=== PATIENT | female | born 1930 | race Caucasian/White ===

== ENCOUNTER → 2017-01-19 | Outpatient (CLI) | payer MEDICARE, OTHER ==
[2015-06-23 14:57] VITALS: BP 126/69
[~2017-01-19] MED LIST: ACET1TAB29 PO; ACET325T9 PO; ACET650T26 PO; AMLO5TAB2 PO; ASPI81TA2 PO; BIMA2.5D OP; CALC-98 PO; CALC200T3 PO; CALC300T5 PO; CARB15DR3 OP; CHOL100013 PO; CYCL1DRO EACHEYE; DARB40DI SQ; DIPH25CA58 PO; FAMO-63 PO; FAMO40OR3 PO; FLUT9.9S NS; GABA-586 PO; GLIP5TAB10 PO; GLUC1CAP48 PO; L. R1CAP PO; LATA2.5D3 OP; LEVO5DRO OP; LEVO75TA PO; LISI-334 PO; LOPE2TAB56 PO; LORA10CA PO; MAGN250T PO; MAGN400C PO; MENT5.8L4 MM; METH4TAB2 PO; PIOG15TA21 PO; PROP15DR OP; SIMV20TA PO; SODI30SP NS; TRAV5DRO EACHEYE; VITA1CAP PO
[2017-01-19 12:13] LABS: BASO % 1 % (0-3); EOS # 0.2 x10^3/uL (0.0-0.7); EOS % 4 % (0-3); HEMATOCRIT 38.3 % (36.0-47.0); HEMOGLOBIN 12.8 g/dL (12.0-15.5); LYMPH # 1.5 x10^3/uL (1.0-4.8); LYMPH % 30 % (24-48); MEAN CORPUSCULAR HEMOGLOBIN 37 pg (25-35); MEAN CORPUSCULAR HGB CONC 33 g/dL (31-37); MEAN CORPUSCULAR VOLUME 110 fL (79-100); MONO # 0.6 x10^3/uL (0.0-1.1); MONO % 13 % (0-9); NEUT # 2.6 x10^3uL (1.8-7.7); NEUT % 53 % (31-73); PLATELET COUNT 186 x10^3/uL (140-400); RED CELL DISTRIBUTION WIDTH 12.8 % (11.5-14.5); WHITE BLOOD COUNT 4.9 x10^3/uL (4.0-11.0)
== END | disposition home or self-care (01) ==
LOC: SPEC 11:16
PROVIDERS: ATTEND Family Medicine
DX: D64.9 Anemia, unspecified (principal)
CPT/HCPCS: 36415; 85027

== ENCOUNTER → 2017-02-07 | Outpatient (CLI) | payer MEDICARE, OTHER ==
[2015-06-23 14:57] VITALS: BP 126/69
[2017-02-07 11:11] LABS: ALBUMIN 3.9 g/dL (3.4-5.0); TOTAL BILIRUBIN 0.4 mg/dL (0.2-1.0); TOTAL PROTEIN 7.5 g/dL (6.4-8.2)
[2017-02-07 11:14] LABS: DIRECT BILIRUBIN 0.2 mg/dL (0.0-0.2)
== END | disposition home or self-care (01) ==
LOC: SPEC 09:22
PROVIDERS: ATTEND Internal Medicine Cardiovascular Disease
DX: E78.5 Hyperlipidemia, unspecified (principal)
CPT/HCPCS: 36415; 80076

== ENCOUNTER → 2017-02-08 | Outpatient (CLI) | payer MEDICARE, OTHER ==
[2015-06-23 14:57] VITALS: BP 126/69
[2017-02-08 15:50] LABS: C REACTIVE PROTEIN 1.3 mg/L (0-3.3)
[2017-02-08 18:14] LABS: BILIRUBIN,URINE NEG (NEG); CLARITY,URINE CLEAR; COLOR,URINE YELLOW; GLUCOSE,URINE 500 mg/dL (NEG); NITRITE,URINE NEG (NEG); UROBILINOGEN,URINE 0.2 mg/dL (0.2 mg/dL)
[2017-02-08 18:15] LABS: BACTERIA,URINE 0 /HPF (0-FEW); RBC,URINE RARE /HPF (0-2); SQUAMOUS EPITHELIAL CELL,UR FEW /LPF
== END | disposition home or self-care (01) ==
LOC: SPEC 15:12
PROVIDERS: ATTEND Specialist
DX: I10 Essential (primary) hypertension (principal); E11.9 Type 2 diabetes mellitus without complications; M25.511 Pain in right shoulder; M25.512 Pain in left shoulder; R07.89 Other chest pain
CPT/HCPCS: 36415; 81001; 82553; 84484; 85651; 86140; 87086

== ENCOUNTER → 2017-02-14 | Outpatient (CLI) | payer MEDICARE, OTHER ==
[2015-06-23 14:57] VITALS: BP 126/69
--- NOTE | 2017-02-14 13:43 | EKG ---
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
== END | disposition home or self-care (01) ==
LOC: EKG 13:14
PROVIDERS: ATTEND Specialist
DX: I10 Essential (primary) hypertension (principal); M25.511 Pain in right shoulder; E11.9 Type 2 diabetes mellitus without complications; M25.512 Pain in left shoulder; R07.89 Other chest pain
CPT/HCPCS: 93005

== ENCOUNTER → 2017-02-17 | Outpatient (CLI) | payer MEDICARE, OTHER ==
[2015-06-23 14:57] VITALS: BP 126/69
[2017-02-17 12:53] LABS: BASO % 1 % (0-3); EOS # 0.2 x10^3/uL (0.0-0.7); EOS % 4 % (0-3); HEMATOCRIT 37.7 % (36.0-47.0); HEMOGLOBIN 12.7 g/dL (12.0-15.5); LYMPH # 1.5 x10^3/uL (1.0-4.8); LYMPH % 33 % (24-48); MEAN CORPUSCULAR HEMOGLOBIN 37 pg (25-35); MEAN CORPUSCULAR HGB CONC 34 g/dL (31-37); MEAN CORPUSCULAR VOLUME 110 fL (79-100); MONO # 0.6 x10^3/uL (0.0-1.1); MONO % 13 % (0-9); NEUT # 2.3 x10^3uL (1.8-7.7); NEUT % 50 % (31-73); PLATELET COUNT 197 x10^3/uL (140-400); RED BLOOD COUNT 3.44 x10^6/uL (3.50-5.40); RED CELL DISTRIBUTION WIDTH 12.6 % (11.5-14.5); WHITE BLOOD COUNT 4.6 x10^3/uL (4.0-11.0)
== END | disposition home or self-care (01) ==
LOC: SPEC 12:39
PROVIDERS: ATTEND Family Medicine
DX: D64.9 Anemia, unspecified (principal)
CPT/HCPCS: 36415; 85027

== ENCOUNTER → 2017-03-21 | Outpatient (CLI) | payer MEDICARE, OTHER ==
[2015-06-23 14:57] VITALS: BP 126/69
[~2017-03-21] MED LIST changes: +ASPI-630 PO; -ASPI81TA2 PO; +CULTURELLE CAP1 EACH PO; -L. R1CAP PO; -PIOG15TA21 PO; +PIOG15TA42 PO; -PROP15DR OP; +PROP15DR40 OP
[2017-03-21 10:17] LABS: BASO % 0 % (0-3); EOS # 0.3 x10^3/uL (0.0-0.7); EOS % 4 % (0-3); HEMATOCRIT 37.2 % (36.0-47.0); HEMOGLOBIN 12.6 g/dL (12.0-15.5); LYMPH # 1.5 x10^3/uL (1.0-4.8); LYMPH % 18 % (24-48); MEAN CORPUSCULAR HEMOGLOBIN 36 pg (25-35); MEAN CORPUSCULAR HGB CONC 34 g/dL (31-37); MEAN CORPUSCULAR VOLUME 107 fL (79-100); MONO # 0.9 x10^3/uL (0.0-1.1); MONO % 10 % (0-9); NEUT % 69 % (31-73); PLATELET COUNT 170 x10^3/uL (140-400); RED BLOOD COUNT 3.47 x10^6/uL (3.50-5.40); RED CELL DISTRIBUTION WIDTH 12.7 % (11.5-14.5); WHITE BLOOD COUNT 8.8 x10^3/uL (4.0-11.0)
[2017-03-21 10:25] LABS: ALBUMIN 3.5 g/dL (3.4-5.0); ALBUMIN/GLOBULIN RATIO 0.9 (1.0-1.7); CALCIUM 8.6 mg/dL (8.5-10.1); CREATININE 2.3 mg/dL (0.6-1.0); TOTAL BILIRUBIN 0.7 mg/dL (0.2-1.0); TOTAL PROTEIN 7.2 g/dL (6.4-8.2)
[2017-03-21 15:32] LABS: THYROID STIM HORMONE (TSH) 1.824 uIU/mL (0.358-3.740)
[2017-03-22 03:10] LABS: HEMOGLOBIN A1C 7.7 % (4.8-5.6)
== END | disposition home or self-care (01) ==
LOC: SPEC 09:22
PROVIDERS: ATTEND Family Medicine
DX: I10 Essential (primary) hypertension (principal); E03.9 Hypothyroidism, unspecified; D64.9 Anemia, unspecified
CPT/HCPCS: 36415; 80053; 80061; 83036; 84443; 85027

== ENCOUNTER → 2017-04-20 | Outpatient (CLI) | payer MEDICARE, OTHER ==
[2015-06-23 14:57] VITALS: BP 126/69
[2017-04-20 09:38] LABS: BASO # 0.1 x10^3/uL (0.0-0.2); BASO % 1 % (0-3); EOS # 0.1 x10^3/uL (0.0-0.7); EOS % 3 % (0-3); HEMATOCRIT 35.7 % (36.0-47.0); HEMOGLOBIN 12.6 g/dL (12.0-15.5); LYMPH # 1.7 x10^3/uL (1.0-4.8); LYMPH % 31 % (24-48); MEAN CORPUSCULAR HEMOGLOBIN 38 pg (25-35); MEAN CORPUSCULAR HGB CONC 35 g/dL (31-37); MEAN CORPUSCULAR VOLUME 107 fL (79-100); MONO # 0.6 x10^3/uL (0.0-1.1); MONO % 11 % (0-9); NEUT % 55 % (31-73); PLATELET COUNT 198 x10^3/uL (140-400); RED BLOOD COUNT 3.33 x10^6/uL (3.50-5.40); RED CELL DISTRIBUTION WIDTH 12.9 % (11.5-14.5); WHITE BLOOD COUNT 5.4 x10^3/uL (4.0-11.0)
[2017-04-21 03:22] LABS: HEMOGLOBIN A1C 8.2 % (4.8-5.6)
== END | disposition home or self-care (01) ==
LOC: SPEC 09:15
PROVIDERS: ATTEND Family Medicine
DX: D64.9 Anemia, unspecified (principal); E03.9 Hypothyroidism, unspecified; N19 Unspecified kidney failure
CPT/HCPCS: 36415; 83036; 83735; 84443; 85027

== ENCOUNTER → 2017-04-21 | Outpatient (CLI) | payer MEDICARE, OTHER ==
[2015-06-23 14:57] VITALS: BP 126/69
[2017-04-21 12:36] LABS: BACTERIA,URINE FEW /HPF (0-FEW); BILIRUBIN,URINE NEG (NEG); CLARITY,URINE CLEAR; COLOR,URINE YELLOW; GLUCOSE,URINE NEG (NEG); NITRITE,URINE NEG (NEG); RBC,URINE 0 /HPF (0-2); SQUAMOUS EPITHELIAL CELL,UR FEW /LPF; UROBILINOGEN,URINE 0.2 mg/dL (0.2 mg/dL); WBC,URINE OCC /HPF (0-4)
== END | disposition home or self-care (01) ==
LOC: SPEC 11:40
PROVIDERS: ATTEND Family Medicine
DX: N39.0 Urinary tract infection, site not specified (principal)
CPT/HCPCS: 81001

== ENCOUNTER → 2017-05-22 | Outpatient (CLI) | payer MEDICARE, OTHER ==
[2015-06-23 14:57] VITALS: BP 126/69
[2017-05-22 08:25] LABS: BASO % 0 % (0-3); EOS # 0.2 x10^3/uL (0.0-0.7); EOS % 4 % (0-3); HEMOGLOBIN 11.8 g/dL (12.0-15.5); LYMPH # 1.8 x10^3/uL (1.0-4.8); LYMPH % 45 % (24-48); MEAN CORPUSCULAR HEMOGLOBIN 36 pg (25-35); MEAN CORPUSCULAR HGB CONC 34 g/dL (31-37); MEAN CORPUSCULAR VOLUME 106 fL (79-100); MONO # 0.5 x10^3/uL (0.0-1.1); MONO % 14 % (0-9); NEUT # 1.4 x10^3uL (1.8-7.7); NEUT % 37 % (31-73); PLATELET COUNT 197 x10^3/uL (140-400); RED CELL DISTRIBUTION WIDTH 12.9 % (11.5-14.5); WHITE BLOOD COUNT 3.9 x10^3/uL (4.0-11.0)
== END | disposition home or self-care (01) ==
LOC: SPEC 08:07
PROVIDERS: ATTEND Family Medicine
DX: D64.9 Anemia, unspecified (principal)
CPT/HCPCS: 36415; 85027

== ENCOUNTER → 2017-06-21 | Outpatient (CLI) | payer MEDICARE, OTHER ==
[2015-06-23 14:57] VITALS: BP 126/69
[~2017-06-21] MED LIST changes: -MAGN250T PO; +MAGN250T2 PO
[2017-06-21 08:35] LABS: BASO % 0 % (0-3); EOS # 0.2 x10^3/uL (0.0-0.7); EOS % 6 % (0-3); HEMATOCRIT 36.3 % (36.0-47.0); HEMOGLOBIN 12.2 g/dL (12.0-15.5); LYMPH # 1.5 x10^3/uL (1.0-4.8); LYMPH % 45 % (24-48); MEAN CORPUSCULAR HEMOGLOBIN 36 pg (25-35); MEAN CORPUSCULAR HGB CONC 34 g/dL (31-37); MEAN CORPUSCULAR VOLUME 107 fL (79-100); MONO # 0.5 x10^3/uL (0.0-1.1); MONO % 16 % (0-9); NEUT # 1.1 x10^3uL (1.8-7.7); NEUT % 33 % (31-73); PLATELET COUNT 198 x10^3/uL (140-400); RED CELL DISTRIBUTION WIDTH 13.4 % (11.5-14.5); WHITE BLOOD COUNT 3.4 x10^3/uL (4.0-11.0)
[2017-06-21 08:43] LABS: ALBUMIN 3.9 g/dL (3.4-5.0); ALBUMIN/GLOBULIN RATIO 1.1 (1.0-1.7); CALCIUM 9.6 mg/dL (8.5-10.1); CREATININE 2.3 mg/dL (0.6-1.0); POTASSIUM 4.3 mmol/L (3.5-5.1); TOTAL BILIRUBIN 0.4 mg/dL (0.2-1.0); TOTAL PROTEIN 7.6 g/dL (6.4-8.2)
[2017-06-22 03:07] LABS: HEMOGLOBIN A1C 7.2 % (4.8-5.6)
== END | disposition home or self-care (01) ==
LOC: SPEC 08:11
PROVIDERS: ATTEND Family Medicine
DX: I10 Essential (primary) hypertension (principal); E03.9 Hypothyroidism, unspecified; Z79.899 Other long term (current) drug therapy
CPT/HCPCS: 36415; 80053; 83036; 83735; 85025

== ENCOUNTER → 2017-07-05 | Outpatient (CLI) | payer MEDICARE, OTHER ==
[2015-06-23 14:57] VITALS: BP 126/69
[2017-07-05 10:32] LABS: ALBUMIN 3.8 g/dL (3.4-5.0); DIRECT BILIRUBIN 0.1 mg/dL (0.0-0.2); TOTAL BILIRUBIN 0.3 mg/dL (0.2-1.0); TOTAL PROTEIN 7.3 g/dL (6.4-8.2)
== END | disposition home or self-care (01) ==
LOC: SPEC 10:02
PROVIDERS: ATTEND Family Medicine
DX: N19 Unspecified kidney failure (principal)
CPT/HCPCS: 36415; 80076

== ENCOUNTER → 2017-07-27 | Outpatient (CLI) | payer MEDICARE, OTHER ==
[2015-06-23 14:57] VITALS: BP 126/69
[2017-07-27 09:57] LABS: BASO % 1 % (0-3); EOS # 0.2 x10^3/uL (0.0-0.7); EOS % 5 % (0-3); HEMATOCRIT 34.5 % (36.0-47.0); LYMPH # 1.2 x10^3/uL (1.0-4.8); LYMPH % 38 % (24-48); MEAN CORPUSCULAR HEMOGLOBIN 37 pg (25-35); MEAN CORPUSCULAR HGB CONC 35 g/dL (31-37); MEAN CORPUSCULAR VOLUME 106 fL (79-100); MONO # 0.5 x10^3/uL (0.0-1.1); MONO % 17 % (0-9); NEUT # 1.3 x10^3uL (1.8-7.7); NEUT % 40 % (31-73); PLATELET COUNT 190 x10^3/uL (140-400); RED BLOOD COUNT 3.25 x10^6/uL (3.50-5.40); RED CELL DISTRIBUTION WIDTH 13.5 % (11.5-14.5); WHITE BLOOD COUNT 3.2 x10^3/uL (4.0-11.0)
== END | disposition home or self-care (01) ==
LOC: SPEC 09:31
PROVIDERS: ATTEND Family Medicine
DX: D64.9 Anemia, unspecified (principal); E08.9 Diabetes mellitus due to underlying condition without complications; N19 Unspecified kidney failure
CPT/HCPCS: 36415; 85025

== ENCOUNTER → 2017-08-22 | Outpatient (CLI) | payer MEDICARE, OTHER ==
[2015-06-23 14:57] VITALS: BP 126/69
[2017-08-22 10:17] LABS: BASO % 1 % (0-3); EOS # 0.2 x10^3/uL (0.0-0.7); EOS % 5 % (0-3); HEMOGLOBIN 12.3 g/dL (12.0-15.5); LYMPH # 1.2 x10^3/uL (1.0-4.8); LYMPH % 31 % (24-48); MEAN CORPUSCULAR HEMOGLOBIN 37 pg (25-35); MEAN CORPUSCULAR HGB CONC 34 g/dL (31-37); MEAN CORPUSCULAR VOLUME 108 fL (79-100); MONO # 0.6 x10^3/uL (0.0-1.1); MONO % 16 % (0-9); NEUT # 1.9 x10^3uL (1.8-7.7); NEUT % 48 % (31-73); PLATELET COUNT 178 x10^3/uL (140-400); RED BLOOD COUNT 3.34 x10^6/uL (3.50-5.40); RED CELL DISTRIBUTION WIDTH 13.3 % (11.5-14.5)
== END | disposition home or self-care (01) ==
LOC: SPEC 09:48
PROVIDERS: ATTEND Family Medicine
DX: D64.9 Anemia, unspecified (principal); E13.10 Other specified diabetes mellitus with ketoacidosis without coma; Z79.899 Other long term (current) drug therapy
CPT/HCPCS: 36415; 85025

== ENCOUNTER → 2017-09-21 | Outpatient (CLI) | payer MEDICARE, OTHER ==
[2015-06-23 14:57] VITALS: BP 126/69
[2017-09-21 13:01] LABS: ALBUMIN 3.7 g/dL (3.4-5.0); ALBUMIN/GLOBULIN RATIO 1.1 (1.0-1.7); CALCIUM 9.4 mg/dL (8.5-10.1); CREATININE 2.4 mg/dL (0.6-1.0); POTASSIUM 4.7 mmol/L (3.5-5.1); TOTAL BILIRUBIN 0.4 mg/dL (0.2-1.0); TOTAL PROTEIN 7.2 g/dL (6.4-8.2)
[2017-09-21 13:10] LABS: MAGNESIUM 2.1 mg/dL (1.8-2.4)
== END | disposition home or self-care (01) ==
LOC: SPEC 12:43
PROVIDERS: ATTEND Family Medicine
DX: N17.9 Acute kidney failure, unspecified (principal); N18.4 Chronic kidney disease, stage 4 (severe); I13.0 Hypertensive heart and chronic kidney disease with heart failure and stage 1 through stage 4 chronic kidney disease, or unspecified chronic kidney disease; E11.22 Type 2 diabetes mellitus with diabetic chronic kidney disease; E03.9 Hypothyroidism, unspecified; E78.00 Pure hypercholesterolemia, unspecified; Z87.891 Personal history of nicotine dependence
CPT/HCPCS: 36415; 80053; 83735; 84443

== ENCOUNTER → 2017-11-21 | Outpatient (CLI) | payer MEDICARE, OTHER ==
[2015-06-23 14:57] VITALS: BP 126/69
[2017-11-21 12:23] LABS: BASO % 0 % (0-3); EOS # 0.1 x10^3/uL (0.0-0.7); EOS % 3 % (0-3); HEMATOCRIT 34.8 % (36.0-47.0); HEMOGLOBIN 11.7 g/dL (12.0-15.5); LYMPH # 1.2 x10^3/uL (1.0-4.8); LYMPH % 35 % (24-48); MEAN CORPUSCULAR HEMOGLOBIN 37 pg (25-35); MEAN CORPUSCULAR HGB CONC 34 g/dL (31-37); MEAN CORPUSCULAR VOLUME 110 fL (79-100); MONO # 0.5 x10^3/uL (0.0-1.1); MONO % 14 % (0-9); NEUT # 1.7 x10^3uL (1.8-7.7); NEUT % 48 % (31-73); PLATELET COUNT 161 x10^3/uL (140-400); RED BLOOD COUNT 3.18 x10^6/uL (3.50-5.40); RED CELL DISTRIBUTION WIDTH 13.3 % (11.5-14.5); WHITE BLOOD COUNT 3.5 x10^3/uL (4.0-11.0)
== END | disposition home or self-care (01) ==
LOC: LAB 12:08
PROVIDERS: ATTEND Family Medicine
DX: D64.9 Anemia, unspecified (principal); I12.9 Hypertensive chronic kidney disease with stage 1 through stage 4 chronic kidney disease, or unspecified chronic kidney disease; E11.22 Type 2 diabetes mellitus with diabetic chronic kidney disease; N18.4 Chronic kidney disease, stage 4 (severe); Z87.891 Personal history of nicotine dependence
CPT/HCPCS: 36415; 85025

== ENCOUNTER 2017-12-19 12:40 | Inpatient (IN) | payer MEDICARE, OTHER ==
[~2017-12-19] VITALS: Ht 167.6 cm; Wt 93.0 kg
[2017-12-19 12:36] VITALS: BP 154/71
[~2017-12-19 12:40] MED LIST changes: +LATA2.5D3 EACHEYE; -LATA2.5D3 OP
[2017-12-19] MEDS ORDERED: IV NORMAL SALINE 1,000ML 1,000 ML IV SCH (14:00)
[2017-12-19] MEDS ORDERED: LACT1CAP2 PO (14:05)
[2017-12-19] MEDS ORDERED: SODI30SP NS (14:05)
[2017-12-19] MEDS ORDERED: DIPH50CA PO (14:05)
[2017-12-19 14:51] LABS: BASO % 1 % (0-3); EOS % 0 % (0-3); HEMATOCRIT 33.9 % (36.0-47.0); HEMOGLOBIN 11.5 g/dL (12.0-15.5); LYMPH # 2.9 x10^3/uL (1.0-4.8); LYMPH % 51 % (24-48); MEAN CORPUSCULAR HEMOGLOBIN 37 pg (25-35); MEAN CORPUSCULAR HGB CONC 34 g/dL (31-37); MEAN CORPUSCULAR VOLUME 108 fL (79-100); MONO # 0.5 x10^3/uL (0.0-1.1); MONO % 8 % (0-9); NEUT # 2.4 x10^3uL (1.8-7.7); NEUT % 41 % (31-73); PLATELET COUNT 135 x10^3/uL (140-400); RED BLOOD COUNT 3.14 x10^6/uL (3.50-5.40); RED CELL DISTRIBUTION WIDTH 13.2 % (11.5-14.5); WHITE BLOOD COUNT 5.8 x10^3/uL (4.0-11.0)
[2017-12-19 14:56] LABS: BACTERIA,URINE FEW /HPF (0-FEW); BILIRUBIN,URINE NEG (NEG); CLARITY,URINE HAZY; COLOR,URINE YELLOW; GLUCOSE,URINE 250 mg/dL (NEG); NITRITE,URINE NEG (NEG); SQUAMOUS EPITHELIAL CELL,UR FEW /LPF; UROBILINOGEN,URINE 0.2 mg/dL (0.2 mg/dL); WBC,URINE OCC /HPF (0-4)
--- NOTE | 2017-12-19 15:00 | NUR ---
Pt arrived A&Ox4 in bed, VSS, assessment complete, pt oriented to unit and personal belongings accounted for, call light within reach no complaints.
--- NOTE | 2017-12-19 15:03 | RAD ---
Chest radiograph 12/19/2017 3:34 PM Indication: Pneumonia Comparison: Chest radiograph 02/10/2015 Technique: PA and lateral views of the chest are provided. Findings: A left chest wall cardiac device is identified with leads decking over the right atrium and right ventricle. Cardiomediastinal silhouette is borderline enlarged and stable. There is mild pulmonary vascular congestion. No definite pleural effusions or pneumothorax. The lungs are clear. Osseous structures are normal. Impression: Mild pulmonary vascular congestion as may be seen with congestive heart failure.
[2017-12-19] MEDS ORDERED: IPRATRPIUM/ALBUTEROL 0.5/2.5MG 3 ML NEBU. ONE (15:06)
[2017-12-19 15:08] LABS: ALBUMIN 3.1 g/dL (3.4-5.0); ALBUMIN/GLOBULIN RATIO 0.7 (1.0-1.7); CALCIUM 8.9 mg/dL (8.5-10.1); CREATININE 2.4 mg/dL (0.6-1.0); POTASSIUM 4.2 mmol/L (3.5-5.1); TOTAL BILIRUBIN 0.6 mg/dL (0.2-1.0); TOTAL PROTEIN 7.6 g/dL (6.4-8.2)
[2017-12-19 15:23] LABS: INFLUENZA A PATIENT NEGATIVE (NEGATIVE); INFLUENZA B PATIENT NEGATIVE (NEGATIVE)
[2017-12-19 15:40] LABS: % BANDS 1 % (0-9); % LYMPHS 20 % (24-48); % MONOS 3 % (0-10); % SEGS 43 % (35-66)
[2017-12-19 16:15] LABS: PLT ESTIMATE ADEQUATE (ADEQUATE)
[2017-12-19 16:18] LABS: ANISOCYTOSIS PRESENT; POLYCHROMASIA PRESENT; STOMATOCYTES PRESENT
[2017-12-19] MEDS: AZITHROMYCIN 250 MG TABLET. PO SCH (16:27)
[2017-12-19] MEDS: guaiFENesin DM 600/30MG 1 TAB TAB.ER.12H PO SCH ×2 (16:27→21:00)
[2017-12-19] MEDS: cefTRIAXone IV Push 1 GM VIAL. IVP SCH (16:28)
[2017-12-19 16:37] VITALS: BP 150/75
[2017-12-19] MEDS ORDERED: SODIUM CHLORIDE 0.65% NASAL SPRAY 45ML BOTTLE. NS PRN (18:00)
[2017-12-19 20:30] VITALS: BP 165/69
[2017-12-19] MEDS ORDERED: FENO145T32 PO (20:46)
[2017-12-19] MEDS ORDERED: SITA50TA PO (20:46)
[2017-12-19] MEDS ORDERED: FLUT9.9S NS (20:47)
[2017-12-19] MEDS: POLYVINYL ALCOHOL 1.4% OPHTH SOLUTION 15ML BOTTLE. OU SCH (20:59)
[2017-12-19] MEDS: cycloSPORINE 0.05% OPTH 1 DROP DROPERETTE OU SCH (20:59)
[2017-12-19] MEDS ORDERED: LATANOPROST 0.005% OPHTH SOLUTION 2.5ML BOTTLE. OU SCH (21:00)
[2017-12-19] MEDS: LATANOPROST 0.005% OPHTH SOLUTION 2.5ML BOTTLE. OU SCH (21:00)
[2017-12-19] MEDS: ATORVASTATIN CALCIUM 10 MG TABLET. PO SCH (21:00)
[2017-12-19] MEDS: GABAPENTIN 300 MG CAPSULE. PO SCH (21:00)
[2017-12-19] MEDS: ACETAMINOPHEN 325 MG TABLET PO SCH (21:00)
[2017-12-19] MEDS: ASPIRIN 81 MG TAB.CHEW PO SCH (21:01)
[2017-12-19] MEDS: LACTOBACILLUS RHAMNOSUS GG 1 CAPSULE. PO SCH (21:01)
[2017-12-19] MEDS: IPRATRPIUM/ALBUTEROL 0.5/2.5MG 3 ML NEBU. NEB SCH (21:32)
[2017-12-19 23:14] VITALS: BP 129/61
[2017-12-20] MEDS: LEVOTHYROXINE 50 MCG TABLET PO SCH (05:57)
[2017-12-20 06:05] VITALS: BP 157/79
--- NOTE | 2017-12-20 07:17 | HP ---
ADMIT DATE: 12/19/2017 This is a slightly delayed dictation. REASON FOR ADMISSION: This is an 87-year-old female who presented to Piotr Vieyra's office on 12/19/2017. She has had a fever for about 1 week, chills, weakness, lightheadedness, some congestions and drainage, dry mouth, and fatigue, also some left-sided pain. She did cough up some phlegm periodically and has had headache. PAST MEDICAL HISTORY: Peripheral vascular disease, cardiac dysrhythmias, diverticulosis, osteoarthritis, type 2 diabetes, hypothyroidism, colon cancer, glaucoma, corneal dystrophy. PAST SURGICAL HISTORY: Cholecystectomy in 1993, colon resection in 1993 and 2010, and tonsillectomy. FAMILY HISTORY: Positive for coronary artery disease, hypertension, myocardial infarction. Sister has some type of cancer. Breast cancer in sister with mets to the brain, leukemia lymphoma, and skin cancer. 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 ALLERGIES: PENICILLIN, AMOXICILLIN, and CELERY. MEDICATIONS: Reviewed and are available on the MAR. REVIEW OF SYSTEMS: As per HPI. Denies other problems. OBJECTIVE: VITAL SIGNS: Blood pressure 150/75, pulse 96, temperature 98.1, respiratory rate 20, pulse ox 95% on 2 liters, height 66 inches, weight 202.44 pounds. GENERAL: Pleasant elderly female in no acute distress. HEENT: Eyes are clear without drainage, wears glasses. Nose is patent. Throat is clear. No drainage noted in the posterior pharynx. The patient does have some sinus tenderness over the frontal sinuses. NECK: Supple. LUNGS: With bilateral crackles. CARDIOVASCULAR: Regular rhythm and rate with a 2/6 systolic murmur. ABDOMEN: Soft, nontender. EXTREMITIES: Without edema. LABORATORY DATA: Her hemoglobin was 11.5, hematocrit 33.9, MCV was 108. Chemistry: Albumin 3.1, BNP 1161, glucose elevated at 231. Sodium 133, chloride 96, BUN 25, creatinine 2.4. Flu and group A strep negative. Chest x-ray with mild vascular pulmonary congestion. ASSESSMENT: 1. Mild congestive heart failure. 2. Febrile illness without a specific source. 3. Macrocytic anemia. We will check a B12. 4. Diabetes type 2 with hyperglycemia. We will need to adjust her diabetic medication and put her on a supplemental scale. 5. Hypertension. We will recheck chest x-ray tomorrow. She will be getting antibiotics at least until tomorrow. KAL OG DO DR: RUBIA/jose JOB#: [id number] / [id number]
[2017-12-20 07:27] LABS: BASO % 0 % (0-3); EOS % 1 % (0-3); HEMATOCRIT 31.5 % (36.0-47.0); HEMOGLOBIN 10.9 g/dL (12.0-15.5); LYMPH # 2.2 x10^3/uL (1.0-4.8); LYMPH % 47 % (24-48); MEAN CORPUSCULAR HEMOGLOBIN 37 pg (25-35); MEAN CORPUSCULAR HGB CONC 34 g/dL (31-37); MEAN CORPUSCULAR VOLUME 109 fL (79-100); MONO # 0.4 x10^3/uL (0.0-1.1); MONO % 8 % (0-9); NEUT # 2.1 x10^3uL (1.8-7.7); NEUT % 44 % (31-73); PLATELET COUNT 128 x10^3/uL (140-400); RED BLOOD COUNT 2.91 x10^6/uL (3.50-5.40); RED CELL DISTRIBUTION WIDTH 13.1 % (11.5-14.5); WHITE BLOOD COUNT 4.8 x10^3/uL (4.0-11.0)
[2017-12-20 07:45] LABS: ALBUMIN 2.8 g/dL (3.4-5.0); ALBUMIN/GLOBULIN RATIO 0.6 (1.0-1.7); CALCIUM 8.7 mg/dL (8.5-10.1); CREATININE 2.2 mg/dL (0.6-1.0); MAGNESIUM 2.1 mg/dL (1.8-2.4); POTASSIUM 3.9 mmol/L (3.5-5.1); TOTAL BILIRUBIN 0.4 mg/dL (0.2-1.0); TOTAL PROTEIN 7.2 g/dL (6.4-8.2)
[2017-12-20] MEDS: LEVOBUNOLOL 0.5% OU SCH (08:16)
[2017-12-20] MEDS: LACTOBACILLUS RHAMNOSUS GG 1 CAPSULE. PO SCH ×2 (08:16→19:50)
[2017-12-20] MEDS: cycloSPORINE 0.05% OPTH 1 DROP DROPERETTE OU SCH ×2 (08:16→19:49)
[2017-12-20] MEDS: AZITHROMYCIN 250 MG TABLET. PO SCH (08:17)
[2017-12-20] MEDS: guaiFENesin DM 600/30MG 1 TAB TAB.ER.12H PO SCH ×2 (08:17→19:50)
[2017-12-20] MEDS: glipiZIDE ER 2.5 MG TAB.ER.24 PO SCH ×2 (08:17→20:01)
[2017-12-20] MEDS: amLODIPine BESYLATE 5 MG TABLET PO SCH (08:17)
[2017-12-20] MEDS: FAMOTIDINE 20 MG TABLET PO SCH (08:18)
[2017-12-20] MEDS: LOPERAMIDE 2 MG CAPSULE PO SCH (08:18)
[2017-12-20] MEDS: MAGNESIUM OXIDE 400 MG TABLET PO SCH (08:18)
--- NOTE | 2017-12-20 08:26 | RAD ---
Chest radiograph 12/20/2017 8:44 AM Indication: Fever, crackles Comparison: Chest radiograph 12/19/2017 Technique: Single upright frontal view of the chest is provided. Findings: Left chest wall cardiac device is identified with leads in similar position. Cardiomediastinal silhouette is within normal limits. Similar degree of mild pulmonary vascular congestion. No pleural effusions or pneumothorax. The lungs are clear. There is mild dextroconvex curvature of the thoracic spine. Impression: Similar appearance of the chest compared to prior examination.
[2017-12-20] MEDS: INSULIN ASPART 300 UNITS/3 ML INSULN.PEN SQ SCH ×3 (08:28→17:14)
--- NOTE | 2017-12-20 08:31 | RAD ---
CT head and maxillofacial without contrast 12/20/2017 Indication: Headache, fever and sinus pain Comparison: None available Technique: Multiple axial noncontrast CT images of the head were obtained from the skull base through the vertex. Multiple axial CT images of the paranasal sinuses were obtained without intravenous contrast. Coronal and sagittal reformats are provided. Findings: The ventricles, sulci and basal cisterns are prominent compatible with mild generalized cerebral volume loss. Benson-white matter differentiation is normal. There is no acute intracranial hemorrhage. There is no mass, mass effect or midline shift. Posterior fossa is within normal limits. Sellar and suprasellar cistern appear normal. Orbits are normal in appearance with exception of bilateral lens replacement. Mastoid air cells are well aerated. Scalp and calvaria are normal. There is a moderate mucous retention cyst in the right maxillary sinus. Left maxillary sinus is well aerated. Nasal turbinates appear normal. Ethmoid air cells, sphenoid sinuses and frontal sinuses are well aerated. The nasal septum is minimally deviated to the right. Ostiomeatal units are patent bilaterally. There may be an accessory ostia on the right. Skull base is intact. Osseous orbits are intact. Impression: There is no acute intracranial hemorrhage. There is a moderate-sized mucus retention cyst in the right maxillary sinus. Ostiomeatal units are patent. PQRS Compliance Statement: One or more of the following individualized dose reduction techniques were utilized for this examination: 1. Automated exposure control 2. Adjustment of the mA and/or kV according to patient size 3. Use of iterative reconstruction technique
[2017-12-20] MEDS ORDERED: FAMOTIDINE 20 MG TABLET PO SCH (09:00)
[2017-12-20] MEDS ORDERED: NON FORMULARY ITEM (Lactobacillus Acidophilus (Acidophilus) 1 EACH) PO SCH (09:00)
[2017-12-20] MEDS ORDERED: CETIRIZINE HCL 10 MG TABLET PO PRN (09:00)
[2017-12-20] MEDS: IPRATRPIUM/ALBUTEROL 0.5/2.5MG 3 ML NEBU. NEB SCH ×2 (09:46→21:30)
--- NOTE | 2017-12-20 11:00 | CARD ---
MR#: [id number] Date of Study: 12/20/2017 Ordering Physician: KAL OG, Referring Physician: KAL OG Tech: Casie Alcantara RDCS APPROVED REPORT EXAM: Two-dimensional and M-mode echocardiogram with Doppler and color Doppler. Other Information Quality : Good INDICATION R/O CHF 2D DIMENSIONS RVDd2.7 (2.9-3.5cm)Left Atrium(2D)3.3 (1.6-4.0cm) IVSd1.3 (0.7-1.1cm)Aortic Root(2D)2.3 (2.0-3.7cm) LVDd4.2 (3.9-5.9cm)LVOT Diameter2.1 (1.8-2.4cm) PWd1.0 (0.7-1.1cm)LVDs2.0 (2.5-4.0cm) FS (%) 30.0 %SV65.4 ml LVEF(%)60.0 (>50%) Aortic Valve AoV Peak Asa.161.1cm/sAoV VTI33.1cm AO Peak GR.10.4mmHgLVOT Peak Asa.92.7cm/s LVOT VTI 18.20cmAO Mean GR.7mmHg MARCIAL (VMAX)1.67hh7PQA (VTI)1.86cm2 Mitral Valve MV E Yropvaij475.0cm/sMV DECEL CBFH842pi MV A Mnoqrnif050.6cm/sE/A Ratio1.1 Tricuspid Valve TR P. Xhdetexw114kq/sRAP CIUFKNZC2nvRw TR Peak Gr.58dvEaZIDC41yaUx Pulmonary Vein S1 Ayvhnzzv90.8cm/sD2 Xxezvvhm37.6cm/s LEFT VENTRICLE The left ventricle is normal size. There is mild asymmetric septal hypertrophy. The left ventricular systolic function is normal and the ejection fraction is within normal range. The Ejection Fraction i s 55-60%. There is normal LV segmental wall motion. Transmitral Doppler flow pattern is Grade II-pseu donormal filling dynamics. RIGHT VENTRICLE The right ventricle is normal size. The right ventricular systolic function is normal. ATRIA The left atrium size is normal. The right atrium size is normal. The interatrial septum is intact wit h no evidence for an atrial septal defect or patent foramen ovale as noted on 2-D or Doppler imaging. AORTIC VALVE The aortic valve is calcified but opens well. Doppler and Color Flow revealed trace aortic regurgitat ion. There is no significant aortic valvular stenosis. MITRAL VALVE The mitral valve is calcified but opens well. Mitral annular calcification is mild. There is no evide nce of mitral valve prolapse. There is no mitral valve stenosis. Doppler and Color Flow revealed no m itral valve regurgitation noted. TRICUSPID VALVE The tricuspid valve is normal in structure and function. Doppler and Color Flow revealed trace tricus pid regurgitation. The PA pressure was estimated at 28 mmHg. There is no tricuspid valve stenosis. PULMONIC VALVE The pulmonic valve is not well visualized. Doppler and Color Flow revealed trace pulmonic valvular re gurgitation. There is no pulmonic valvular stenosis. GREAT VESSELS The aortic root is normal in size. The ascending aorta is normal in size. The IVC is normal in size a nd collapses >50% with inspiration. PERICARDIAL EFFUSION There is no evidence of significant pericardial effusion. Critical Notification Critical Value: No <Conclusion> The left ventricular systolic function is normal and the ejection fraction is within normal range. Th e Ejection Fraction is 55-60%. There is normal LV segmental wall motion. No significant valvular disease. Signed by : Jam Ramírez, Electronically Approved : 12/20/2017 10:59:35
[2017-12-20 11:11] VITALS: BP 154/68
[2017-12-20] MEDS: ACETAMINOPHEN 325 MG TABLET PO PRN (11:15)
[2017-12-20] MEDS: cefTRIAXone IV Push 1 GM VIAL. IVP SCH (14:53)
[2017-12-20 16:10] VITALS: BP 141/85
[2017-12-20] MEDS ORDERED: CYCLOBENZAPRINE 10 MG TABLET. PO PRN (19:15)
[2017-12-20 19:28] VITALS: BP 172/79
[2017-12-20] MEDS: POLYVINYL ALCOHOL 1.4% OPHTH SOLUTION 15ML BOTTLE. OU SCH (19:49)
[2017-12-20] MEDS: LATANOPROST 0.005% OPHTH SOLUTION 2.5ML BOTTLE. OU SCH (19:49)
[2017-12-20] MEDS: ATORVASTATIN CALCIUM 10 MG TABLET. PO SCH (19:50)
[2017-12-20] MEDS: GABAPENTIN 300 MG CAPSULE. PO SCH (19:51)
[2017-12-20] MEDS: ACETAMINOPHEN 325 MG TABLET PO SCH (19:51)
[2017-12-20] MEDS: ASPIRIN 81 MG TAB.CHEW PO SCH (19:51)
[2017-12-20 22:44] VITALS: BP 114/72
--- NOTE | 2017-12-20 22:48 | PDOC ---
PROVIDER NOTE PROVIDER NOTE PROVIDER NOTE Cardiology Consult Note: ' CC: Fatigue Sister Brittany is well known to our service presents to the hospital for progressive fatigue and fever. No recent cardiac issues otherwise. Denies any chest pain, LE edema, no orthopnea or PND. No syncope or palpitations. Pmhx: CAD HTN DLP Socx: No alcohol, tob or illicits. All- per chart Meds; Reviewed. No pertinent med side effects noted, ROS: Otherwise as noted in HPI Constitutional: Well developed, well nourished, no acute distress, non-toxic appearance. [] HENT: Normocephalic, atraumatic, bilateral external ears normal, oropharynx moist, no oral exudates, nose normal. [] Eyes: PERRLA, EOMI, conjunctiva normal, no discharge. [] Neck: Normal range of motion, no tenderness, supple, no stridor. [] Cardiovascular:Heart rate regular rhythm, no murmur [] Lungs & Thorax: Bilateral breath sounds clear to auscultation [] Abdomen: Bowel sounds normal, soft, no tenderness, no masses, no pulsatile masses. [] Skin: Warm, dry, no erythema, no rash. [] Back: No tenderness, no CVA tenderness. [] Extremities: No tenderness, no cyanosis, no clubbing, ROM intact, no edema. [] Neurologic: Alert and oriented X 3, normal motor function, normal sensory function, no focal deficits noted. [] Psychologic: Affect normal, judgement normal, mood normal. [] Labs reviewed. Echo wnl Impression: 1. Fatigue with viral syndrome - 2. Elevated BNP - no significant HF by exam with normal EF. 3. HTN - stable 4. CAD - stable, no angina. Fatigue unlikely to be ischemic. 5. LORENZO - stable 6. Anemia of Chronic disease - mildly worsened. RECS 1. No further CV recs. Supportive care. F/u with us on an outpt basis. Thanks. ULISES WINN MD Dec 20, 2017 22:48
--- NOTE | 2017-12-21 01:35 | CONS ---
DATE OF CONSULTATION: 12/20/2017 REASON FOR CONSULTATION: Recurrent headaches. HISTORY OF PRESENT ILLNESS: This is an 87-year-old right-handed, who was admitted today after she presented with one-week history of viral illness, generalized fatigue, and lightheadedness. The patient stated she has been suffering in the last few days from severe occipital headaches, more prominent on the left side. The headache is usually aggravated by turning the head to any direction. She stated that headache is usually associated with depression. She stated that headache sometimes associated with neck pain and muscle tightness. She denies nausea, vomiting, photophobia or phonophobia. She denies any chest pain, shortness of breath or palpitation, dysarthria, dysphagia, weakness. She denies chest pain, shortness of breath or palpitation, dysarthria or dysphagia. She also complains of intermittent numbness and tingling of leg. She has been using a walker for ambulation because of weakness of the leg and lower back pain. Initial nonenhanced head CT scan revealed no evidence of acute intracranial process, but showed right maxillary sinus retention cyst. PAST MEDICAL HISTORY: Significant for diabetes mellitus type 2, hypothyroidism, cardiac arrhythmias, peripheral vascular disease, diverticulosis, osteoarthritis, glaucoma, and corneal dystrophy. PAST SURGICAL HISTORY: Positive for cholecystectomy in 1993, colon resection for cancer in 2010, and tonsillectomy. SOCIAL HISTORY: The patient denies smoking, but she drinks a glass of wine occasionally. She lives at [facility] in [place]. 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 FAMILY HISTORY: Positive for coronary artery disease, hypertension, breast cancer, and brain cancer, lymphoma. CURRENT HOME MEDICATIONS: Tylenol for headache, albuterol inhaler and nebulizer, amlodipine, artificial tears, aspirin, Lipitor, cetirizine, cyclobenzaprine, cyclosporine, Restasis, Pepcid, gabapentin, glipizide, guaifenesin, Mucinex XR, insulin NovoLog, Xalatan, Betagan, levothyroxine. ALLERGIES: PENICILLIN, AMOXICILLIN. REVIEW OF SYSTEMS: His 10-point review of system was performed as mentioned above in history of present illness, otherwise unremarkable. PHYSICAL EXAMINATION: GENERAL: Well developed, well nourished, in no acute distress. She weighs 202 pounds. VITAL SIGNS: Blood pressure 140/72, respiratory rate 18, pulse is 83 and regular, temperature 98.3, oxygen saturation 95% on 2 liters via nasal cannula. HEENT: Normocephalic, atraumatic, otherwise unremarkable. NECK: Supple. Negative for carotid bruit, lymphadenopathy or thyromegaly. LUNGS: With diminished breath sounds with mild bibasilar crackles. No wheezing. CARDIOVASCULAR: Regular rhythm, normal S1, S2. There is no S3, S4, or murmur. ABDOMEN: Soft. Bowel sounds positive. EXTREMITIES: Negative for cyanosis, clubbing, edema. CARDIOVASCULAR: Regular rhythm, normal S1 and S2. There is a 2/6 systolic murmur. ABDOMEN: Soft. Bowel sounds positive. EXTREMITIES: Negative for cyanosis, clubbing or pitting edema. NEUROLOGICAL EXAM: 1. MENTAL STATUS: The patient is alert and oriented x 3. Speech is fluent. There is no language dysfunction. Memory, judgment, and abstract thinking are fair within normal limit for her age. The patient denies hallucination or delusion. 2. CRANIAL NERVES: Visual akers are full. The pupils are reactive to light and accommodation. The extraocular movements are intact. There is no nystagmus. There is no facial motor or sensory deficit. Hearing is intact bilaterally. The palate is elevated symmetrically. Sternocleidomastoid muscles are powerful bilaterally. The patient shrugs her shoulders symmetrically protrudes her tongue in the midline without fasciculation or atrophy. 3. MOTOR: No focal muscle bulk was seen. The tone is normal. The strength is 4/5 throughout. 4. Sensory examination revealed diminished pinprick and light touch senses in patchy distributions in both lower extremities. Deep tendon reflexes were symmetric and hypoactive with absent Achilles responses. Gait: The patient uses a walker for ambulation. DIAGNOSTIC DATA: Head CT scan as described above in the history of present illness. A chest x-ray revealed a mild pulmonary congestion, otherwise unremarkable. Echocardiogram today revealed a normal left ventricular systolic function with ejection fraction of 55 to 60, otherwise unremarkable. LABORATORY DATA: CBC revealed white blood cells of 4800, hemoglobin 10.9, hematocrit 31.5, are elevated, platelet count is low at 128,000. Chemistry revealed sodium of 135, potassium 3.9, chloride 98, CO2 28, BUN 27, creatinine 2.2, glucose 231, hemoglobin A1c is 7.2, uric acid is high at 8.2. Normal iron and creatinine, AST is elevated at 58 with normal ALT, troponin level is 0.024, NPB is elevated at 1161. Lipid profile is normal. Urinalysis, no evidence of urinary tract infections. IMPRESSION: 1. Intermittent severe occipital headaches, more prominent on the left side. Etiology is uncertain. May represent tension headaches or probably referral headache from cervical spine pathology. 2. One week history of viral illnesses, presented with fever, chills, generalized aches, and lightheadedness. 3. Multiple medical problems include peripheral vascular disease, history of cardiac arrhythmias, diabetes mellitus type 2, osteoarthritis, hypothyroidism, and glaucoma with corneal dystrophy. 4. Microcytic anemia. 5. Diabetes mellitus type 2 and elevated uric acid. RECOMMENDATIONS: 1. Treat the tension headache with mild analgesics as Tylenol. 2. Add a muscle relaxant as Flexeril 5 to 10 mg daily at bedtime. 3. We will obtain x-ray of the cervical spine. 4. Continue with current management and care initiated by Dr. Ragland. 5. Check vitamin B12. 6. Physical therapy evaluation. M Tran AGUILAR MD DR: ELSY/jose JOB#: [id number] / [id number]
[2017-12-21] MEDS: ACETAMINOPHEN 325 MG TABLET PO PRN (04:06)
[2017-12-21] MEDS: LEVOTHYROXINE 50 MCG TABLET PO SCH (05:39)
[2017-12-21 06:13] VITALS: BP 155/72
[2017-12-21] MEDS: glipiZIDE ER 2.5 MG TAB.ER.24 PO SCH (07:34)
[2017-12-21] MEDS: cycloSPORINE 0.05% OPTH 1 DROP DROPERETTE OU SCH (07:34)
[2017-12-21] MEDS: LOPERAMIDE 2 MG CAPSULE PO SCH (07:34)
[2017-12-21] MEDS: MAGNESIUM OXIDE 400 MG TABLET PO SCH (07:34)
[2017-12-21] MEDS: LEVOBUNOLOL 0.5% OU SCH (07:34)
[2017-12-21] MEDS: guaiFENesin DM 600/30MG 1 TAB TAB.ER.12H PO SCH (07:34)
[2017-12-21 07:35] VITALS: BP 155/72
[2017-12-21] MEDS: amLODIPine BESYLATE 5 MG TABLET PO SCH (07:35)
[2017-12-21] MEDS: LACTOBACILLUS RHAMNOSUS GG 1 CAPSULE. PO SCH (07:35)
[2017-12-21] MEDS: FAMOTIDINE 20 MG TABLET PO SCH (07:35)
[2017-12-21] MEDS: INSULIN ASPART 300 UNITS/3 ML INSULN.PEN SQ SCH (07:38)
--- NOTE | 2017-12-21 10:15 | NUR ---
CALLED FOR REPORT TO [facility]CHARGE [facility], REPORT GIVEN AND ALL QUESTIONS/CONCERNS ANSWERED BEST TO ABILITY. WILL AWAIT TRANSPORTATION AT 1100.
--- NOTE | 2017-12-21 10:27 | PN ---
DATE: 12/21/2017 SUBJECTIVE: The patient is steady today. She does not have any headaches or neck pain. She denies any new medical or neurological complaints. She complains of intermittent muscle spasm of the arms and legs. OBJECTIVE: GENERAL: Well-developed, well-nourished white female, not in acute distress. VITAL SIGNS: Blood pressure 155/72, respiratory rate 20, pulse 82 and regular, temperature is 99, oxygen saturation is 93% on room air. HEENT: Normocephalic, atraumatic, otherwise unremarkable. NECK: Supple. Negative for carotid bruit, lymphadenopathy or thyromegaly. LUNGS: Clear to A and P. CARDIOVASCULAR: Regular rhythm, normal S1, S2. There is no S3, S4 or murmur. ABDOMEN: Soft. Bowel sounds positive. EXTREMITIES: Negative for cyanosis, clubbing or pitting edema. NEUROLOGIC: The patient is alert and oriented. Normal mental status and intact cranial nerves. No focal muscle bulk wasting. The strength is 4/5 throughout. Sensory examination revealed diminished pinprick and light touch senses in patchy distributions in both lower extremities. Deep tendon reflexes were symmetric and hypoactive with absent Achilles responses. Gait: She uses a walker for ambulation. The stance is steady. IMPRESSION: 1. Intermittent tension headaches, more prominent on the left occipital regions, etiology uncertain, rule out referred pain from cervical spine. 2. Multiple medical problems including renal failure, peripheral vascular disease, history of cardiac arrhythmias, diabetes mellitus type 2, osteoarthritis, hypothyroidism, glaucoma and corneal dystrophy, macrocytic anemia. RECOMMENDATIONS: Continue with current management and medication. Await cervical spine x-ray. M Tran AGUILAR MD DR: ELSY/jose JOB#: [id number] / [id number]
--- NOTE | 2017-12-21 10:29 | DS ---
DATE OF DISCHARGE: 12/21/2017 DISCHARGE DIAGNOSES: 1. Febrile illness. Flu and group A strep negative. Chest x-ray negative. Urine negative. 2. Mild pulmonary vascular congestion. 3. Intermittent hypoxia. 4. Macrocytic anemia. B12 is normal. She is getting Aranesp. 5. Diabetes type 2, hyperglycemia. Adjusted her medications. 6. Hypertension. 7. Recurrent headaches. Dr. Fonseca saw and ordered neck x-ray. HOSPITAL COURSE: This is an 87-year-old female who was a direct admit from Dr. Vieyra's office with a temperature up to 102.8 over at [facility], some lightheadedness, some congestion and some fatigue. She did receive antibiotics for 2 days; however, chest x-ray, urine, flu and strep were negative. She did have intermittent hypoxia, which easily recovered with a very low dose of oxygen. She was seen by Cardiology who did not feel that her pulmonary edema was significant and her echocardiogram was fairly unremarkable and he did not feel that any other intervention was necessary. She has chronic kidney disease stage 4, but that had not changed. She had acute kidney injury from probably mild dehydration, which she came almost down to her baseline creatinine before discharge. On the day of discharge, she was feeling well, sitting up in her chair. OBJECTIVE: VITAL SIGNS: Blood pressure 155/72, temperature 99, respirations 82, respiratory rate 20, pulse ox taken by me was 96% on room air. GENERAL: Her color was good. HEENT: Her tongue was moist. NECK: Supple. LUNGS: With a few crackles in the bases, otherwise clear. Good air movement. CARDIOVASCULAR: Regular rhythm and rate with a 2/6 systolic murmur. ABDOMEN: Soft, nontender. EXTREMITIES: Without edema. PLAN: Discharge back to [facility]. Instructions given. Added in the low dose of insulin as she was quite hyperglycemic during her stay. PRN oxygen as necessary and did not send her home on antibiotics as a source was not found. She did have a large mucus retention cyst on her CT and that can be addressed as an outpatient if necessary, but she is asymptomatic. KAL OG DO DR: RUBIA/jose JOB#: [id number] / [id number] ALISSON Stovall MD
--- NOTE | 2017-12-21 10:55 | NUR ---
Transportation here for pt to go back to [facility]. Iv discontinued, papers provided to transportation, pt off unit via wheelchair.
--- NOTE | 2017-12-21 11:20 | RAD ---
Three-view cervical spine series History: Neck pain. No known injury. Findings: There is a grade 1 anterolisthesis of C2-3 and C3-4 and C4-5 and C7-T1. Degenerative facet nephropathy seen at these levels and at the other levels of the cervical spine. There is mild degenerative disc space narrowing and endplate spurring at C4-5. There is moderate degenerative disc space narrowing and endplate spurring at C5-6 and C6-7 and C7-T1. No acute fracture or discitis or osteolytic process or prevertebral soft tissue swelling is evident. Mild levoscoliosis is seen. IMPRESSION: Moderate degenerative cervical spondylosis. Degenerative spondylolisthesis.
[2017-12-21 15:29] LABS: % ATYL 33 % (0-0)
[2017-12-26] MEDS ORDERED: DARBEPOETIN ALFA 40 MCG/0.4 ML DISP.SYRIN. SQ SCH (09:00)
== END 2017-12-21 11:00 | disposition home or self-care (01) | DRG 683 ==
LOC: 1 SOUTH 12:40
PROVIDERS: ADMIT Family Medicine; ATTEND Family Medicine
DX: N17.9 Acute kidney failure, unspecified (principal); I13.0 Hypertensive heart and chronic kidney disease with heart failure and stage 1 through stage 4 chronic kidney disease, or unspecified chronic kidney disease; E11.22 Type 2 diabetes mellitus with diabetic chronic kidney disease; E11.51 Type 2 diabetes mellitus with diabetic peripheral angiopathy without gangrene; I50.9 Heart failure, unspecified; G44.209 Tension-type headache, unspecified, not intractable; B34.9 Viral infection, unspecified; R09.02 Hypoxemia; N18.4 Chronic kidney disease, stage 4 (severe); E11.65 Type 2 diabetes mellitus with hyperglycemia; D63.8 Anemia in other chronic diseases classified elsewhere; E86.0 Dehydration; F32.9 Major depressive disorder, single episode, unspecified; H40.9 Unspecified glaucoma; K57.90 Diverticulosis of intestine, part unspecified, without perforation or abscess without bleeding; M19.90 Unspecified osteoarthritis, unspecified site; J34.1 Cyst and mucocele of nose and nasal sinus; D53.9 Nutritional anemia, unspecified; D50.9 Iron deficiency anemia, unspecified; E03.9 Hypothyroidism, unspecified; I25.10 Atherosclerotic heart disease of native coronary artery without angina pectoris; Z85.038 Personal history of other malignant neoplasm of large intestine; Z90.49 Acquired absence of other specified parts of digestive tract; Z90.89 Acquired absence of other organs; Z82.49 Family history of ischemic heart disease and other diseases of the circulatory system; Z80.8 Family history of malignant neoplasm of other organs or systems; Z80.7 Family history of other malignant neoplasms of lymphoid, hematopoietic and related tissues; Z80.6 Family history of leukemia; Z80.3 Family history of malignant neoplasm of breast; Z88.1 Allergy status to other antibiotic agents; Z88.0 Allergy status to penicillin; Z88.8 Allergy status to other drugs, medicaments and biological substances
CPT/HCPCS: 36415; 70450; 70486; 71045; 71046; 72040; 80053; 81001; 82607; 82947; 83605; 83735; 83880; 84484; 85007; 85025; 87040; 87070; 87641; 87804; 87880; 93306; 94640; J0456; J0696; J1815; J7620

== ENCOUNTER 2017-12-25 09:44 | Emergency (ER) | payer MEDICARE, OTHER ==
[~2017-12-25 09:44] MED LIST changes: +DIPH50CA PO; +FENO145T32 PO; +LACT1CAP2 PO; +SITA50TA PO
--- NOTE | 2017-12-25 10:49 | EKG ---
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
[2017-12-25 10:51] LABS: BASO % 1 % (0-3); EOS % 0 % (0-3); HEMATOCRIT 30.7 % (36.0-47.0); HEMOGLOBIN 10.5 g/dL (12.0-15.5); LYMPH # 3.8 x10^3/uL (1.0-4.8); LYMPH % 51 % (24-48); MEAN CORPUSCULAR HEMOGLOBIN 37 pg (25-35); MEAN CORPUSCULAR HGB CONC 34 g/dL (31-37); MEAN CORPUSCULAR VOLUME 108 fL (79-100); MONO # 0.6 x10^3/uL (0.0-1.1); MONO % 8 % (0-9); NEUT % 40 % (31-73); PLATELET COUNT 113 x10^3/uL (140-400); RED BLOOD COUNT 2.84 x10^6/uL (3.50-5.40); RED CELL DISTRIBUTION WIDTH 13.6 % (11.5-14.5); WHITE BLOOD COUNT 7.5 x10^3/uL (4.0-11.0)
--- NOTE | 2017-12-25 10:58 | PHYS DOC ---
General Chief Complaint: FEVER Stated Complaint: FEVER Time Seen by MD: 09:51 Source: patient Exam Limitations: no limitations Problems: History of Present Illness Initial Comments 87-year-old female comes in the ED with complaint of fever cough. Patient states that for the past 4-5 days she's had subjective fevers and chills with yellow productive cough. She says that she's had some mild dyspnea on exertion denies any dyspnea at rest and no chest pain. No nausea vomiting or diarrhea her blood sugars remained around the 200s which is her baseline. She was admitted to this facility December 19 through the for febrile illness and intermittent hypoxia, her medications were adjusted she improved and was discharged home. An echocardiogram was performed and has been attached to the chart below. Patient's vital signs are stable she is afebrile on arrival. She's been fairly sedentary until yesterday and thinks may be she's tired "I just overdid it." She is a former smoker. PATIENT: ELSA RHOADES ACCOUNT: [id number] : 1930 LOCATION: [address] [place] [address] AGE: 87 SEX: F EXAM STATUS: ADM IN ORD. PHYSICIAN: KAL OG DO REASON: r/o CHF PROCEDURE: ECHOCARDIOGRAM MR#: [id number] Date of Study: 12/20/2017 Ordering Physician: KAL OG, Referring Physician: KAL OG, Tech: Casie Alcantara [facility] APPROVED REPORT EXAM: Two-dimensional and M-mode echocardiogram with Doppler and color Doppler. Other Information Quality : Good INDICATION R/O CHF 2D DIMENSIONS RVDd 2.7 (2.9-3.5cm) Left Atrium(2D) 3.3 (1.6-4.0cm) IVSd 1.3 (0.7-1.1cm) Aortic Root(2D) 2.3 (2.0-3.7cm) LVDd 4.2 (3.9-5.9cm) LVOT Diameter 2.1 (1.8-2.4cm) PWd 1.0 (0.7-1.1cm) LVDs 2.0 (2.5-4.0cm) FS (%) 30.0 % SV 65.4 ml LVEF(%) 60.0 (>50%) Aortic Valve AoV Peak Asa. 161.1cm/s AoV VTI 33.1cm AO Peak GR. 10.4mmHg LVOT Peak Asa. 92.7cm/s LVOT VTI 18.20cm AO Mean GR. 7mmHg MARCIAL (VMAX) 1.95cm2 MARCIAL (VTI) 1.86cm2 Mitral Valve MV E Velocity 138.0cm/s MV DECEL TIME 143ms MV A Velocity 130.6cm/s E/A Ratio 1.1 Tricuspid Valve TR P. Velocity 251cm/s RAP ESTIMATE 3mmHg TR Peak Gr. 25mmHg RVSP 28mmHg Pulmonary Vein S1 Velocity 46.8cm/s D2 Velocity 51.6cm/s LEFT VENTRICLE The left ventricle is normal size. There is mild asymmetric septal hypertrophy. The left ventricular systolic function is normal and the ejection fraction is within normal range. The Ejection Fraction is 55-60%. There is normal LV segmental wall motion. Transmitral Doppler flow pattern is Grade II- pseudonormal filling dynamics. RIGHT VENTRICLE The right ventricle is normal size. The right ventricular systolic function is normal. ATRIA The left atrium size is normal. The right atrium size is normal. The interatrial septum is intact with no evidence for an atrial septal defect or patent foramen ovale as noted on 2-D or Doppler imaging. AORTIC VALVE The aortic valve is calcified but opens well. Doppler and Color Flow revealed trace aortic regurgitation. There is no significant aortic valvular stenosis. MITRAL VALVE The mitral valve is calcified but opens well. Mitral annular calcification is mild. There is no evidence of mitral valve prolapse. There is no mitral valve stenosis. Doppler and Color Flow revealed no mitral valve regurgitation noted. TRICUSPID VALVE The tricuspid valve is normal in structure and function. Doppler and Color Flow revealed trace tricuspid regurgitation. The PA pressure was estimated at 28 mmHg. There is no tricuspid valve stenosis. PULMONIC VALVE The pulmonic valve is not well visualized. Doppler and Color Flow revealed trace pulmonic valvular regurgitation. There is no pulmonic valvular stenosis. GREAT VESSELS The aortic root is normal in size. The ascending aorta is normal in size. The IVC is normal in size and collapses >50% with inspiration. PERICARDIAL EFFUSION There is no evidence of significant pericardial effusion. Critical Notification Critical Value: No <Conclusion> The left ventricular systolic function is normal and the ejection fraction is within normal range. The Ejection Fraction is 55-60%. There is normal LV segmental wall motion. No significant valvular disease. Signed by : Ulises Ramírez, Electronically Approved : 12/20/2017 10:59:35 DICTATED AND SIGNED BY: ULISES RAMÍREZ MD DATE: 12/20/17 1059 CC: ALISSON PATHAK MD; KAL OG DO; ULISES RAMÍREZ MD ~ Timing/Duration: other Severity: mild Modifying Factors: improves with medication, improves with rest Associated Symptoms: cough, fever/chills, shortness of breath, other Allergies: Coded Allergies: celery (Unverified Allergy, Severe, sob, 06/22/15) Penicillins (Verified Allergy, Intermediate, 02/08/15) amoxicillin (Verified Allergy, Intermediate, Diarrhea, 10/11/13) Past Medical History Medical History: other (PVD, cardiac dysrhythmias, diverticulitis, osteoarthritis, diabetes, hypothyroidism, colon cancer, glaucoma, corneal dystrophy) Surgical History: other (cholecystectomy 1993, colectomy 1993 and 2010, tonsillectomy) Social History Smoker: non-smoker, quit greater than 1 year (patient smokes cigarettes when she was young quit 40 years ago) Alcohol: occasionally (wine) Drugs: none Review of Systems Constitutional: see HPI Respiratory: see HPI, denies orthopnea, denies stridor Cardiovascular: denies chest pain, denies palpitations, denies syncope Gastrointestinal: denies abdominal pain, denies nausea, denies vomiting Musculoskeletal: denies back pain, denies joint pain, denies neck pain Psychiatric/Neurological: denies headache, denies numbness, denies paresthesia Hematologic/Lymphatic: denies blood clots, denies easy bleeding, denies easy bruising Physical Exam General Appearance: WD/WN, no apparent distress Ear, Nose, Throat: hearing grossly normal, normal ENT inspection, normal pharynx Neck: non-tender, supple Respiratory: other (faint wheezes bilaterally with good air movement no respiratory distress chest is nontender) Cardiovascular: normal peripheral pulses, regular rate, rhythm Gastrointestinal: non tender, soft Extremities: non-tender, normal inspection, no pedal edema 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 PATIENT: ELSA RHOADES ACCOUNT: [id number] : 1930 LOCATION: ER AGE: 87 SEX: F EXAM STATUS: REG ER ORD. PHYSICIAN: RUBÉN KERNS DO REASON: fever cough PROCEDURE: PORTABLE CHEST 1V PORTABLE CHEST 1V Clinical Indication: Fever, cough, weakness Comparison: AP chest December 20, 2017. Findings: Left chest dual-chamber pacer. Atherosclerotic and mildly tortuous thoracic aorta. Mild cardiomegaly. Lungs are clear. There is no pneumothorax. No pleural effusion is appreciated. No acute bone abnormality. IMPRESSION: No acute cardiopulmonary process. Electronically signed by: Rickey Omer MD (12/25/2017 12:22 PM) [id number] DICTATED AND SIGNED BY: RICKEY OMER MD DATE: 12/25/17 1220 CC: ALISSON PATHAK MD; RUBÉN KERNS DO ~ Patient reports feeling much better after Solu-Medrol and DuoNeb. Her lungs are now clear with further improved air movement. Patient states that she feels ready to go home and I am in agreement. I reviewed her labs and although some are abnormal they are right at her baseline. Impressions: Bronchitis with bronchospasm Chronic kidney disease Anemia of chronic disease Departure Time of Disposition: 14:08 Disposition: 01 HOME, SELF-CARE Diagnosis: bronchitis with bronchospasm Condition: STABLE Patient Instructions: Acute Bronchitis, [id number], Bronchospasm, Adult, Fever, Adult Additional Instructions: Please review the patient education materials given by ED staff. Aggressive hydration to prevent dehydration. [id number] Tylenol and ibuprofen as needed. Prescription: DuoNeb vials, albuterol MDI, doxycycline Follow-up with your doctor in 3 days for recheck. Return to ED with new or changing symptoms. RUBÉN KERNS DO Dec 25, 2017 10:58
[2017-12-25 11:11] LABS: ALBUMIN 2.5 g/dL (3.4-5.0); CALCIUM 8.2 mg/dL (8.5-10.1); CREATININE 2.4 mg/dL (0.6-1.0); DIRECT BILIRUBIN 0.2 mg/dL (0.0-0.2); POTASSIUM 4.2 mmol/L (3.5-5.1); TOTAL BILIRUBIN 0.5 mg/dL (0.2-1.0); TOTAL PROTEIN 6.8 g/dL (6.4-8.2)
[2017-12-25 11:57] LABS: % BANDS 1 % (0-9); % EOS 1 % (0-5); % LYMPHS 41 % (24-48); % MONOS 7 % (0-10); % SEGS 42 % (35-66)
[2017-12-25 11:58] LABS: PLT ESTIMATE DECREASED (ADEQUATE)
[2017-12-25 11:59] LABS: BACTERIA,URINE FEW /HPF (0-FEW); BILIRUBIN,URINE NEG (NEG); CLARITY,URINE HAZY; COLOR,URINE STRAW; GLUCOSE,URINE 250 mg/dL (NEG); NITRITE,URINE NEG (NEG); RBC,URINE 0 /HPF (0-2); SQUAMOUS EPITHELIAL CELL,UR FEW /LPF; UROBILINOGEN,URINE 0.2 mg/dL (0.2 mg/dL); WBC,URINE 0 /HPF (0-4)
[2017-12-25 11:59] LABS: POLYCHROMASIA MOD
[2017-12-25 12:03] LABS: % ATYL 8 % (0-0)
[2017-12-25 12:16] LABS: INFLUENZA A PATIENT NEGATIVE (NEGATIVE); INFLUENZA B PATIENT NEGATIVE (NEGATIVE)
--- NOTE | 2017-12-25 12:25 | RAD ---
PORTABLE CHEST 1V Clinical Indication: Fever, cough, weakness Comparison: AP chest December 20, 2017. Findings: Left chest dual-chamber pacer. Atherosclerotic and mildly tortuous thoracic aorta. Mild cardiomegaly. Lungs are clear. There is no pneumothorax. No pleural effusion is appreciated. No acute bone abnormality. IMPRESSION: No acute cardiopulmonary process. Electronically signed by: Rickey Omer MD (12/25/2017 12:22 PM) [id number]
[2017-12-25 12:38] LABS: MONONUCLEOSIS PATIENT NEGATIVE (NEGATIVE)
[2017-12-25] MEDS ORDERED: IPRATRPIUM/ALBUTEROL 0.5/2.5MG 3 ML NEBU. NEB ONE (13:15)
[2017-12-25] MEDS ORDERED: IPRA3AMP NEB (14:19)
[2017-12-25] MEDS ORDERED: DOXY100T PO (14:19)
[2017-12-25] MEDS ORDERED: ALBU8.5H8 INH (14:19)
[2017-12-25] MEDS ORDERED: ONDANSETRON ODT 4 MG TAB.RAPDIS PO ONE (14:45)
[2017-12-25] MEDS ORDERED: DOXYCYCLINE HYCLATE 100 MG TABLET PO ONE (14:45)
[2017-12-25 14:54] VITALS: BP 138/71
== END 2017-12-25 14:50 | disposition home or self-care (01) ==
LOC: ER 09:44
DX: J40 Bronchitis, not specified as acute or chronic (principal); J98.01 Acute bronchospasm; M19.90 Unspecified osteoarthritis, unspecified site; E11.9 Type 2 diabetes mellitus without complications; E03.9 Hypothyroidism, unspecified; Z87.891 Personal history of nicotine dependence; Z88.0 Allergy status to penicillin; Z88.1 Allergy status to other antibiotic agents; Z88.8 Allergy status to other drugs, medicaments and biological substances
CPT/HCPCS: 36415; 71045; 80048; 80076; 81001; 83605; 83880; 84484; 85007; 85025; 86308; 87040; 87804; 93005; 94640; 99285; J7620; Q0162